=== PATIENT | female | born 1965 | race Caucasian/White ===

== ENCOUNTER 2016-12-04 15:39 | Emergency (ER) | payer BC ==
[~2016-12-04] VITALS: Ht 167.6 cm; Wt 75.0 kg
[~2016-12-04 15:39] MED LIST: PRESTIQUE PO; [UNRECOGNIZED DRUG - OTHER] PO
[2016-12-04 15:40] VITALS: TEMP 99.3
[2016-12-04] MEDS ORDERED: SETLAKIN 0.151 EACH PO (15:44)
[2016-12-04] MEDS ORDERED: ZYRTEC 10MG10 MG PO (15:44)
[2016-12-04 16:20] LABS: BASO % 0.5 % (0.0-2.0); EOS # 0.1 (0.0-0.7); EOS % 0.9 % (0-4.0); GRAN # 5.5 (1.4-6.5); HEMOGLOBIN 14.5 g/dl (12.5-16.0); LYMPH % 23.9 % (20.0-51.0); MEAN CELL VOLUME 93 fl (80.0-100.0); MEAN CORPUSCULAR HEMOGLOBIN 31 pg (27.0-31.0); MEAN CORPUSCULAR HGB CONC 34 g/dl (33.0-37.0); MEAN PLATELET VOLUME 9.3 fl (7.4-10.4); MONO # 0.6 (0.1-0.6); MONO % 7.6 % (1.7-9.3); PLATELET COUNT 264 K/mm3 (130-400); RED BLOOD COUNT 4.62 M/mm3 (4.10-5.30); REDCELL DISTRIBUTION WIDTH-CV 12.8 % (11.5-14.5); WHITE BLOOD COUNT 8.2 K/mm3 (4.8-10.8)
[2016-12-04 16:32] LABS: INR 0.9 (0.8-3.0); PROTHROMBIN TIME 10.2 SECONDS (9.7-12.8)
[2016-12-04 16:35] LABS: ADJUSTED CALCIUM 9.3 mg/dL (8.4-10.2); ALANINE AMINOTRANSFERASE 28 U/L (9-52); ALBUMIN 4.6 gm/dL (3.5-5.0); ALKALINE PHOSPHATASE 47 U/L (50-136); ANION GAP 15 mmol/L (7-16); BILIRUBIN,TOTAL 0.7 mg/dL (0.0-1.0); BLOOD UREA NITROGEN 11 mg/dL (7-17); CALCIUM 9.8 mg/dL (8.4-10.2); CARBON DIOXIDE 22 mmol/L (22-30); CHLORIDE 103 mmol/L (98-107); CREATININE, serum 0.75 mg/dL (0.52-1.25); GLUCOSE 94 mg/dL (74-106); LIPASE 173 U/L (23-300); POTASSIUM 3.6 mmol/L (3.4-5.0); SODIUM 140 mmol/L (137-145); TOTAL PROTEIN 7.7 gm/dL (6.4-8.2)
[2016-12-04 16:54] LABS: TROPONIN-I < 0.012 ng/mL (0.000-0.034)
[2016-12-04] MEDS ORDERED: NORVASC 5MG5 MG/TAB PO (19:51)
[2016-12-04 21:06] VITALS: BP 210/112; PULSE 96
== END 2016-12-04 21:30 | disposition short-term general hospital (02) ==
LOC: COL.ER 15:39
PROVIDERS: Emergency Medicine
DX: R07.9 Chest pain, unspecified (principal); R06.00 Dyspnea, unspecified; I10 Essential (primary) hypertension; R07.1 Chest pain on breathing; Z82.49 Family history of ischemic heart disease and other diseases of the circulatory system; R00.2 Palpitations
CPT/HCPCS: Q9967

== ENCOUNTER → 2017-01-07 | Outpatient (CLI) | payer BC ==
[~2017-01-07] MED LIST changes: +NORVASC 5MG5 MG/TAB PO; +SETLAKIN 0.151 EACH PO; +ZYRTEC 10MG10 MG PO
== END ==
LOC: MC.RAD 09:00
DX: Z12.31 Encounter for screening mammogram for malignant neoplasm of breast (principal)

== ENCOUNTER → 2018-02-23 | Outpatient (CLI) | payer BC | LOC: MC.RAD 02-03 11:20 | DX: Z12.31 Encounter for screening mammogram for malignant neoplasm of breast (principal) ==

== ENCOUNTER → 2019-02-24 | Outpatient (CLI) | payer BC | LOC: MC.RAD 08:14 | DX: Z12.31 Encounter for screening mammogram for malignant neoplasm of breast (principal) ==

== ENCOUNTER → 2020-02-26 | Outpatient (CLI) | payer BC | LOC: MC.RAD 09:30 | DX: Z12.31 Encounter for screening mammogram for malignant neoplasm of breast (principal) ==

== ENCOUNTER 2022-01-30 08:49 | Day surgery (SDC) | payer BC ==
[~2022-01-30] VITALS: Ht 167.6 cm; Wt 60.1 kg
[2022-01-30] MEDS ORDERED: NOLVADEX 1010 MG/TAB PO (09:19)
[2022-01-30] MEDS ORDERED: CLARITIN 1010 MG/TAB PO (09:19)
[2022-01-30] MEDS ORDERED: ADULT MULTIVIT1 EACH PO (09:19)
[2022-01-30 09:23] VITALS: BP 120/77; PULSE 60; TEMP 98
[2022-01-30 11:20] VITALS: BP 120/83; PULSE 59; TEMP 97.3
--- NOTE | 2022-01-30 11:26 | NUR ---
1120- PT arrived from procedure and was settled by Rebeka EL. Verbal report then obtained. Warm blankets provided. NON-slip socks remain on. PT oriented to room and call sweeney, within reach. PT provided hot coffee, ice water and a warm muffin per request. PT denies nausea. NO vomiting. PT asked RN to contact ride with ETA.
[2022-01-30 11:35] VITALS: BP 117/96; PULSE 63
--- NOTE | 2022-01-30 11:35 | NUR ---
VSS. PT has finished snack and drink; and continues to deny nausea and pain. Call sweeney is within reach.
[2022-01-30 11:50] VITALS: BP 125/79; PULSE 69
--- NOTE | 2022-01-30 11:50 | NUR ---
VSS. IV discontinued. Catheter tip intact. Pressure bandage applied. NO redness or swelling noted. DC instructions and educational material reviewed with the PT, who verbalized understanding and signed the realted paperwork. Questions answered to PT satisfaction. was in to speak with the PT. PT denied needing assistance changing into personal clothes, call sweeney remains within reach if needed.
--- NOTE | 2022-01-30 12:20 | NUR ---
PT dismissed from endo via wheelchair by an RN to the PT entrence. PT has DC packet and personal belonings and was transferred into the care of her friend, who is driving private car.
== END 2022-01-30 12:20 | disposition home or self-care (01) ==
LOC: SDCO 08:49
DX: Z12.11 Encounter for screening for malignant neoplasm of colon (principal); D12.5 Benign neoplasm of sigmoid colon; K63.5 Polyp of colon; K57.30 Diverticulosis of large intestine without perforation or abscess without bleeding
CPT/HCPCS: J2704; J3010; J7030